=== PATIENT | male | born 1945 | race Caucasian/White ===

== ENCOUNTER → 2017-02-01 | Outpatient (CLI) | payer MEDICARE, OTHER ==
[~2017-02-01] MED LIST: ATOR10TA PO; NAPR250T6 PO; OMEP-110 PO; POTA20TA14 PO; TERA2CAP3 PO; TERA5CAP3 PO
== END | disposition home or self-care (01) ==
LOC: ROC 14:48
PROVIDERS: ATTEND Radiology Radiation Oncology
DX: C01 Malignant neoplasm of base of tongue (principal)
CPT/HCPCS: G0463

== ENCOUNTER 2018-09-12 08:44 | Outpatient (CLI) | payer MEDICARE, OTHER | END 2018-09-12 23:59 | disposition home or self-care (01) | LOC: ROC 08:44 | PROVIDERS: ATTEND Radiology Radiation Oncology | DX: Z08 Encounter for follow-up examination after completed treatment for malignant neoplasm (principal); K11.7 Disturbances of salivary secretion; E03.9 Hypothyroidism, unspecified; Z85.810 Personal history of malignant neoplasm of tongue | CPT/HCPCS: G0463 ==

== ENCOUNTER 2018-12-18 09:11 | Outpatient (CLI) | payer MEDICARE, OTHER | END 2018-12-18 23:59 | disposition home or self-care (01) | LOC: PETCFH 09:11 | PROVIDERS: ATTEND Radiology Radiation Oncology | DX: C01 Malignant neoplasm of base of tongue (principal); K76.89 Other specified diseases of liver | CPT/HCPCS: 78815; A9552 ==

== ENCOUNTER → 2018-12-20 | Outpatient (CLI) | payer MEDICARE, OTHER | END | disposition home or self-care (01) | LOC: ROC 08:00 | PROVIDERS: ATTEND Radiology Radiation Oncology | DX: C01 Malignant neoplasm of base of tongue (principal); Z87.891 Personal history of nicotine dependence; Z82.49 Family history of ischemic heart disease and other diseases of the circulatory system; Z79.899 Other long term (current) drug therapy | CPT/HCPCS: G0463 ==

== ENCOUNTER → 2019-04-17 | Outpatient (CLI) | payer MEDICARE, OTHER | END | disposition home or self-care (01) | LOC: PETCFH 08:00 | PROVIDERS: ATTEND Radiology Radiation Oncology | DX: N63.10 Unspecified lump in the right breast, unspecified quadrant (principal); N40.0 Benign prostatic hyperplasia without lower urinary tract symptoms | CPT/HCPCS: 78815; A9552 ==

== ENCOUNTER → 2019-04-21 | Outpatient (CLI) | payer MEDICARE, OTHER | END | disposition home or self-care (01) | LOC: ROC 08:07 | PROVIDERS: ATTEND Radiology Radiation Oncology | DX: C01 Malignant neoplasm of base of tongue (principal) | CPT/HCPCS: G0463 ==